=== PATIENT | female | born 1985 ===

== ENCOUNTER → 2019-07-07 11:25 | Outpatient (CLI) | payer OTHER, SELFPAY | DX: Z23 Encounter for immunization (principal) | CPT/HCPCS: 90471; 90686 ==

== ENCOUNTER 2025-02-26 03:05 | Emergency (ER) | payer OTHER, SELFPAY ==
[2025-02-26 03:26] VITALS: BP 128/64; PULSE 79; RESP 18; TEMP 36.4; O2SAT 100; BMI 32.3
--- NOTE | 2025-02-26 03:27 | EKG_ITS ---
[address] [id number] [address], [place] [address] Test Date: 2025-02-26 Pat Name: STARR CASAS Department: Room: Gender: Female [employer] Supervisor: JASWINDER : 1985 Requested By: Order Number: [id number] Reading MD: Rodolfo Reed MD Measurements Intervals [place] Rate: 79 P: 22 ME: 220 QRS: 58 QRSD: 78 T: 23 QT: 386 QTc: 442 Interpretive Statements Sinus rhythm with 1st degree AV block Electronically Signed On 02-26-2025 8:26:05 PDT by Rodolfo Reed MD
--- NOTE | 2025-02-26 03:29 | DI.RAD.S_ITS ---
PROCEDURE: XR CHEST 1V INDICATIONS: arrhythmia, palpitations, chest pressure TECHNIQUE: One view of the chest was acquired. COMPARISON: None. FINDINGS: Surgical changes and devices: None. Lungs and pleura: Lungs are clear. No pleural effusions or pneumothorax. Mediastinum: Mediastinal contours appear normal. Heart size is normal. Bones and chest wall: No suspicious bony lesions. Overlying soft tissues appear unremarkable. IMPRESSION: Normal portable chest. Note: No significant discrepancy from the preliminary report. Dictated by: Pedro Gonzalez M.D. on 02/26/2025 at 8:27 Approved by: Pedro Gonzalez M.D. on 02/26/2025 at 8:28
[2025-02-26 03:32] VITALS: BP 128/64; PULSE 82; RESP 16; O2SAT 99
--- NOTE | 2025-02-26 03:33 | ED.ARRPALP ---
HPI - Arrhythmia/Palpitations General Chief Complaint: Arrhythmia/Palpitations Stated Complaint: Heart palpitations, tightness in chest x1day Time Seen by Provider: 02/26/25 03:20 Source: patient Mode of arrival: Ambulatory History of Present Illness HPI narrative: 39-year-old female who presents with chest tightness tonight while lying down attempting to go to sleep. She took some antacid thinking it could have been acid reflux as well as a hot shower to see if that would help relaxer but both did no did not relieve the chest tightness. Here on arrival the chest tightness has resolved but when it did 1st occur it lasted for a minute or 2 and then went away. She states that she is under stress since she bought her house back in August last year and she had some chest tightness then but today was more severe than back then but she has never been treated or diagnosed with anxiety before. Other than what is stated 14 point review of system is negative Related Data Allergies Allergy/AdvReac Type Severity Reaction Status Date / Time No Known Drug Allergies Allergy Verified 02/26/25 03:29 Review of Systems Review of Systems ROS Unobtainable: All systems reviewed & are unremarkable except as noted in HPI and below Patient History Social History Smoking Status: Never smoker Smoking Status: Never smoker Exam Narrative Exam Narrative: GENERAL: [39] year old patient appears stated age. Well-developed patient, in mild distress. HEAD: Atraumatic. Normocephalic. EYES: Pupils equal round and reactive. Extraocular motions intact. No scleral icterus. No injection or drainage. ENT: Nose without bleeding, purulent drainage. Throat without erythema, tonsillar hypertrophy or exudate. Airway patent. NECK: Trachea midline. Non tender CARDIOVASCULAR: Regular rate and rhythm without murmurs, gallops, or rubs. RESPIRATORY: Clear to auscultation. Breath sounds equal bilaterally. No wheezes, rales, or rhonchi. GASTROINTESTINAL: Abdomen soft, non-tender, nondistended. EXTREMITIES: No edema or joint tenderness. BACK: Nontender without deformity or crepitance. No flank tenderness. NEURO: AOx3. SKIN: No rash or erythema of visible areas Initial Vital Signs Initial Vital Signs: Vital Signs Temperature 97.5 F L 02/26/25 03:26 Pulse Rate 79 02/26/25 03:26 Respiratory Rate 18 02/26/25 03:26 Blood Pressure 128/64 02/26/25 03:26 Pulse Oximetry 100 02/26/25 03:26 Oxygen Delivery Method Room Air 02/26/25 03:26 Scores HEART Score Heart Score history: Slightly Suspicious Heart Score EKG: Normal Heart Score Age: < 45 years old Heart Score risk factors: No known risk factors Heart Score troponin: < or = to normal limit Heart Score Total: 0 Course Orders Ordered: ED Orders 02/26/25 03:20 EKG-12 Lead Stat 02/26/25 03:29 XR chest 1V Stat RT Consult Eval and Treat NOW 02/26/25 03:42 Complete Blood Count AUTO DIFF Stat Comprehensive Metabolic Panel Stat Lactate (Lactic Acid) Stat Lipase Stat Magnesium Stat NT-proBNP (BNP-Adult 18+) Stat PTT Partial Thromboplastin Luigi Stat Prothrombin Time INR Stat Troponin & CK Cardiac Panel Stat Discontinued Medications Aspirin (Aspirin 81 Mg Chew Tab) 324 mg PO NOW ONE Stop: 02/26/25 03:30 Last Admin: 02/26/25 03:40 Dose: 324 mg Documented By: AB Diphenhydramine HCl (Diphenhydramine 50 Mg/Ml Vial) 50 mg IV NOW ONE Stop: 02/26/25 03:56 Last Admin: 02/26/25 04:00 Dose: 50 mg Documented By: Vital Signs Vital signs: Vital Signs - 8 hr 02/26/25 03:26 02/26/25 03:32 02/26/25 03:32 Temperature 97.5 F L Pulse Rate 79 82 Respiratory Rate 18 16 Blood Pressure 128/64 128/64 Pulse Oximetry 100 99 Oxygen Delivery Method Room Air Room Air 02/26/25 04:00 02/26/25 04:00 02/26/25 04:30 Temperature Pulse Rate 98 H Respiratory Rate 14 Blood Pressure 128/80 132/61 Pulse Oximetry 99 Oxygen Delivery Method 02/26/25 04:30 Temperature Pulse Rate 83 Respiratory Rate 18 Blood Pressure Pulse Oximetry 99 Oxygen Delivery Method MDM - Arrhythmia/Palpitations Lab Data 02/26/25 03:42 02/26/25 03:42 Labs: Lab Results 02/26/25 Range/Units 03:42 WBC 9.0 (4.5-11.0) X10^3/uL RBC 4.25 (4.0-5.2) X10^6/uL Hgb 12.6 (12.0-16.0) g/dL Hct 36.7 (36-46) % MCV 86.5 (80-100) fL MCH 29.8 (26-34) PG MCHC 34.4 (30-36) % RDW 13.1 (11.6-14.8) % Plt Count 366 (150-400) X10^3/uL Neut % (Auto) 64.1 (50-75) % Lymph % (Auto) 26.3 (25-40) % [place] % (Auto) 5.3 (3-14) % Eos % (Auto) 3.8 (2-4) % Baso % (Auto) 0.5 (0-2) % Neut # (Auto) 5800 (6897-5794) /uL Lymph # (Auto) 2400 (2267-6218) /uL [place] # (Auto) 500 (0-900) /uL Eos # (Auto) 300 (0-450) /uL Baso # (Auto) 0 (0-100) /uL PT 10.7 (9.4-12.5) SECONDS INR 0.9 (0.9-1.3) APTT 31 (25.1-36.5) SECONDS Sodium 139 (137-145) mmol/L Potassium 4.2 (3.4-5.1) mmol/L Chloride 107 (98-107) mmol/L Carbon Dioxide 21 L (22-32) mmol/L BUN 14 (7-17) mg/dL Creatinine 0.63 (0.52-1.04) mg/dL Estimated GFR > 60 (>60) mL/min BUN/Creatinine Ratio 22.2 H (6-22) Glucose 114 H (70-99) mg/dL Lactate 1.1 (0.7-2.1) mmol/L Calcium 9.0 (8.4-10.2) mg/dL Magnesium 1.8 (1.6-2.3) mg/dL Total Bilirubin 0.4 (0.2-1.3) mg/dL AST 25 (14-36) IU/L ALT 21 (<35) IU/L Alkaline Phosphatase 64 (38-126) U/L Total Creatine Kinase 70 (30-135) U/L Troponin I < 0.012 (0.01-0.034) ng/mL NT-Pro-B Natriuret Pep 38 (<125) pg/mL Total Protein 7.5 (6.3-8.2) g/dL Albumin 4.3 (3.5-5.0) g/dL Globulin 3.2 (1.7-4.1) g/dL Albumin/Globulin Ratio 1.3 (1.0-2.8) Lipase 87 (23-300) U/L ECG Data Interpretation: SR PA 220 QRS [address]-t wave change No old ekg to compare against MDM Narrative Medical decision making narrative: All lab work, vital signs, nurse triage note, medication list, chest x-ray, and previous ER visits all reviewed. Patient given 50 mg of Benadryl here. Differential diagnosis includes anxiety, PE, pneumothorax, chest wall pain, and GERD. Heart score of 0. First set troponin negative, EKG Sinus Rhythm and chest x-ray all showed no acute process. DC home follow up with PCP next week for re-evaluation. Discharge Plan Departure Patient Disposition: Home Clinical Impression: Chest pain Qualifiers: Chest pain type: chest pain on breathing Qualified Code(s): R07.1 - Chest pain on breathing Instructions: DI for Chest Pain Activity Restrictions/Additional Instructions: Return with new or worsening symptoms. Follow up with PCP next week for re-evaluation. Stand Alone Forms: Patient Portal/API/Survey
[2025-02-26] MEDS: ASPIRIN 81 MG CHEW TAB 324 MG PO (03:40)
[2025-02-26 03:50] LABS: Add Manual Diff / Slide Review NO; Basophils Absolute Auto 0 /uL (0-100); Basophils Percent Auto 0.5 % (0-2); Eosinophils Absolute Auto 300 /uL (0-450); Eosinophils Percent Auto 3.8 % (2-4); Hematocrit 36.7 % (36-46); Hemoglobin 12.6 g/dL (12.0-16.0); Lymphocytes Absolute Auto 2400 /uL (1100-4500); Lymphocytes Percent Auto 26.3 % (25-40); Mean Corpuscular HGB Conc 34.4 % (30-36); Mean Corpuscular Hemoglobin 29.8 PG (26-34); Mean Corpuscular Volume 86.5 fL (80-100); Monocytes Absolute Auto 500 /uL (0-900); Monocytes Percent Auto 5.3 % (3-14); Neutrophils Absolute Auto 5800 /uL (1500-7000); Neutrophils Percent Auto 64.1 % (50-75); Platelet Count 366 X10^3/uL (150-400); Red Blood Cell Count 4.25 X10^6/uL (4.0-5.2); Red Cell Distribution Width 13.1 % (11.6-14.8)
[2025-02-26 03:56] LABS: INR 0.9 (0.9-1.3); Prothrombin Time 10.7 SECONDS (9.4-12.5)
[2025-02-26 03:59] LABS: Lactate (Lactic Acid) 1.1 mmol/L (0.7-2.1); PTT Partial Thromboplastin Tim 31 SECONDS (25.1-36.5)
[2025-02-26 04:00] VITALS: BP 128/80; PULSE 98; RESP 14; O2SAT 99
[2025-02-26 04:00] LABS: Alanine Aminotransferase 21 IU/L (<35); Albumin 4.3 g/dL (3.5-5.0); Albumin Globulin Ratio 1.3 (1.0-2.8); Alkaline Phosphatase 64 U/L (38-126); Aspartate Aminotransferase 25 IU/L (14-36); BUN Creatinine Ratio 22.2 (6-22); Bilirubin Total 0.4 mg/dL (0.2-1.3); Blood Urea Nitrogen 14 mg/dL (7-17); Carbon Dioxide 21 mmol/L (22-32); Chloride 107 mmol/L (98-107); Creatine Kinase 70 U/L (30-135); Estimated Glomerular Filt Rate > 60 mL/min (>60); Globulin 3.2 g/dL (1.7-4.1); Glucose 114 mg/dL (70-99); HEMOLYSIS 36 (0-50); Lipase 87 U/L (23-300); Magnesium 1.8 mg/dL (1.6-2.3); Potassium 4.2 mmol/L (3.4-5.1); Sodium 139 mmol/L (137-145); Total Protein 7.5 g/dL (6.3-8.2)
[2025-02-26] MEDS: diphenhydrAMINE 50 MG/ML VIAL IV (04:00)
[2025-02-26 04:12] LABS: NT-proBNP (BNP-Adult 18+) 38 pg/mL (<125); Troponin I < 0.012 ng/mL (0.01-0.034)
[2025-02-26 04:30] VITALS: BP 132/61; PULSE 83; RESP 18; O2SAT 99
[2025-02-26 05:00] VITALS: BP 115/56; PULSE 81; RESP 15; O2SAT 98
== END 2025-02-26 05:26 | disposition home or self-care (01) ==
PROVIDERS: Emergency Provider Family Medicine
DX: R07.1 Chest pain on breathing (principal)
CPT/HCPCS: 36415; 71045; 80053; 82550; 83605; 83690; 83735; 83880; 84484; 85025; 85610; 85730; 93005; 96374; 99284; J1200